=== PATIENT | female | born 1980 | race Caucasian/White ===

== ENCOUNTER 2018-09-23 13:19 | Outpatient (CLI) | payer OTHER, SELFPAY ==
--- NOTE | 2018-09-23 14:12 | DI.RAD_ITS ---
SYMPTOMS/DIAGNOSIS: SHORTNESS OF BREATH, R06.02 PA AND LATERAL CHEST: The heart is normal in size. The lungs are clear. The mediastinal structures and pleura appear intact. CONCLUSION: Normal chest. No evidence of acute cardiopulmonary disease.
[2018-09-23 14:41] LABS: HCT 34.5 % (36.0-46.0); Mean Corp. HGB Concentration 31.9 g/dL (32.0-36.0); Mean Corpuscular Hemoglobin 27.3 pg (27.0-33.0); Mean Corpuscular Volume 85.6 fL (80-95); Mean Platelet Volume 9.8 fL (8.0-11.0); Platelet Count 274 x1000/uL (130-400); RBC 4.03 m/cumm (4.00-5.20); RBC Distribution Width 14.6 % (11.7-14.6); White Blood Cell Count 4.26 k/cumm (4.4-10.8)
[2018-09-23 15:09] LABS: Anion Gap 7.9 mmol/L (3-11); BUN 17 mg/dL (7-18); CO2 27.1 mmol/L (21.0-32.0); CREATININE 1.05 mg/dL (0.55-1.02); Calcium 8.5 mg/dL (8.5-10.1); Chloride 104 mmol/L (98-107); Estimated GFR 58.34 (mL/min/1.73m2); Glucose 93 mg/dL (70-100); Potassium 4.3 mmol/L (3.5-5.1); Sodium 139 mmol/L (136-145)
== END 2018-09-23 13:39 ==
PROVIDERS: PCP Physician Assistant Medical; Visit Provider Specialist/Technologist Athletic Trainer
DX: R53.83 Other fatigue (principal); D64.9 Anemia, unspecified; R06.02 Shortness of breath
CPT/HCPCS: 36415; 80048; 85027; 71046

== ENCOUNTER 2018-11-25 18:42 | Emergency (ER) | payer OTHER, SELFPAY ==
[2018-11-25 18:47] VITALS: BP 138/95; PULSE 80; RESP 20; TEMP 36.6; O2SAT 98
--- NOTE | 2018-11-25 19:40 | W.ED.GENAD ---
Discharge Plan Disposition Patient Disposition: HOME Condition: Fair Discharge Details Chief Complaint: Nk/Back Pain Clinical Impression: Acute left-sided back pain with sciatica Primary Care Provider: Gumaro Alonzo ED Provider: Shakila Gilmore Home Meds and New Rx's Prescriptions: New cyclobenzaprine 10 mg tablet 10 mg PO TID PRN (Reason: muscle spasm) Qty: 10 RF: 0 Continued venlafaxine [Effexor XR] 150 mg Capsule,Extended Release 24hr 150 mg PO DAILY RF: 0 Discharge Instructions Instructions: Cyclobenzaprine (By mouth), Back Pain (ED) Additional Instructions: Encourage hydration. Encourage gentle stretching and ambulation. Tylenol and/or Ibuprofen as needed for discomfort. May continue with Salonpas or Lidoderm patches for discomfort. Flexeril as prescribed for muscle spasm, do not drive while taking this medication. Referral for physical therapy is attached, please call them tomorrow to schedule appointment. Please call primary care to schedule appointment next week for reevaluation. If you develop altered sensation, change in urinary or bowel habits, note weakness in your legs, have fevers/chills or other new/worsening symptoms please seek care urgently once again. Stand Alone Forms: Physical Therapy Referral Referrals: Gumaro Alonzo PA [Primary Care Provider] - Medical Decision Making Patient is a 38 year old female, accompanied by friend, with c/c of left sided lower back pain that radiates down the posterior left leg. States that pain began one month ago and has waxed and waned based on position. Denies trauma. No fevers/chills. No altered sensation, no change in urinary or bowel habits. States she has had these issues historically, prior to his current episode the last was 3-4 months ago. Reports she was diagnosed with sciatica. Has been seen by her primary care and diagnosed with sciatica. She reports that typically this resolves on its own. However, the pain is persisted she is presenting to the emergency department tonight. States that she can have spasms that are quite severe but at this point the pain is fairly minimal. On exam, patient is walking with a minimally antalgic gait. No saddle paresthesias, strength is equal bialterally in lower extremities. Reflexes equal. No midline tenderness. Pain over left SI joint. Positive straight leg raise on the right side. Paitent and I discused treatment options. At this point, there is no evidence of emergent issue, no emergent treatment is necessary. She initially had declined medicaitons here but after exam, patient states pain is increased and is requesting Toradol as this has worked well for her historically. will also apply Lidoderm patch. We discussed possible patholgy. We discussed, at length, the need for chronic treatment. She will be referred to PT. She is endorsing muscle spasms, states that this can cause the largest amount of pain. Will also prescribed Flexeril to be used PRN. ADvised not to drive while taking this medication. We discussed new/worsening symptoms and when to seek care urgently once again. Advised new/worsening symptoms and when to seek care urgently once again. All of her questions and concerns were addressed. HPI General Mode of arrival: ambulatory. Date/Time Provider Initiated Documentation: 11/25/18 19:38. Limitations to Documentation: no limitations. Information obtained by: patient and family (accompanied by liset). History of Present Illness 38 year old F presents to the emergency department with the chief complaint of left lower back pain, described as moderate, Quality is described as aching, and is localized to the back. Patient extremity (LLE). Patient started experiencing this month(s) and it has been intermittent. No relieving factors improve symptom(s), Movement worsens symptoms . Patient notes denies chest pain, cough, fever/chills, rash and weakness. Patient did receive the following treatments prior to arrival, NSAID Related Data Home Medications Medication Instructions Recorded Confirmed cyclobenzaprine 10 mg PO TID PRN #10 tab 11/25/18 venlafaxine [Effexor XR] 150 mg PO DAILY 11/25/18 11/25/18 Previous Rx's Medication Instructions Recorded cyclobenzaprine 10 mg PO TID PRN #10 tab 11/25/18 Allergies Allergy/AdvReac Type Severity Reaction Status Date / Time No Known Allergies Allergy Unverified 11/25/18 18:51 General Stated Complaint: Nk/Back Pain MONICA: 4 Review of Systems Constitutional Reports as per HPI, Denies chills, Denies fever(s), Denies frequent falls, Denies headache(s) and Denies weakness ENT Denies headache(s) Cardiovascular Reports as per HPI Respiratory Reports as per HPI and Denies cough Musculoskeletal Reports as per HPI, Reports abnormal gait (antalgic), Denies numbness and Denies tingling Integumentary/Breasts Reports as per HPI, Denies rash and Denies wounds Neurologic Denies abnormal movements, Reports abnormal gait (antalgic), Denies frequent falls, Denies headache(s), Denies focal weakness, Denies numbness, Reports radicular pain, Denies sensory deficit, Denies tingling, Denies paresthesias and Denies weakness [facility] Social History Smoking/Tobacco Use Status: Current every day Exam Const General: cooperative, healthy appearing, comfortable, no acute distress, well developed and well groomed Nutritional Appearance: average body habitus and well nourished Orientation: alert and awake Resp Effort & Inspection: normal respiratory effort, able to speak in complete sentences and no respiratory distress Auscultation: clear to auscultation bilaterally Cardio Rate: regular rate Rhythm: regular rhythm Heart Sounds: S1 normal and S2 normal Back/Spine/Pelvis Cervical Spine: normal cervical lordosis and cervical ROM normal Thoracic/Lumbar Spine: thoracic and lumbar spine normal to inspection, thoraco-lumbar ROM normal, No straight leg raise negative bilaterally (positive on right side), No pain with thoraco-lumbar ROM, No paraspinal tenderness, No thoraco-lumbar ROM limited and No thoracic spinal tenderness Sacroiliac joints: on the left tender to palpation Skin General skin exam: no rashes or lesions noted Lesions: no lesions Rashes: no rashes Trauma: no lacerations or abrasions Neuro General: alert and awake Cognition: normal cognition Speech: speech normal Gait: antalgic Motor: muscle tone normal throughout and strength 5/5 throughout Sensory Exam: no sensory deficits noted (no saddle paresthesias) DTR's: Rt Patellar: 2+, Lt Patellar: 2+, Rt Ankle: 2+ and Lt Ankle: 2+ Extrem General: normal to inspection, no pedal edema and no calf tenderness Right lower extremity: normal to inspection Left lower extremity: normal to inspection Psych Appearance: grossly normal and well kempt Mental Status: mental status grossly normal Speech and Movement: speech and movement normal Course Vital Signs Temperature 36.6 C 11/25/18 18:47 Pulse 80 11/25/18 18:47 Respiratory Rate 20 11/25/18 18:47 Blood Pressure 138/95 H 11/25/18 18:47 Pulse Oximetry 98 11/25/18 18:47 Temperature 36.6 C 11/25/18 18:47 Temperature Source Temporal Artery Scan 11/25/18 18:47 Pulse 80 11/25/18 18:47 Respiratory Rate 20 11/25/18 18:47 Respiratory Effort Non-Labored 11/25/18 18:47 Blood Pressure 138/95 H 11/25/18 18:47 Pulse Oximetry 98 11/25/18 18:47 Oxygen Delivery Method Room Air 11/25/18 18:47 Oxygen Flow Rate 0 11/25/18 18:47 Pain Level 7 11/25/18 18:52
--- NOTE | 2018-11-25 20:06 | ED.GENADUL_ITS ---
Discharge Plan Disposition Patient Disposition: HOME Condition: Fair Discharge Details Chief Complaint: Nk/Back Pain Clinical Impression: Acute left-sided back pain with sciatica Primary Care Provider: Gumaro Alonzo ED Provider: Shakila Gilmore Home Meds and New Rx's Prescriptions: New cyclobenzaprine 10 mg tablet 10 mg PO TID PRN (Reason: muscle spasm) Qty: 10 RF: 0 Continued venlafaxine [Effexor XR] 150 mg Capsule,Extended Release 24hr 150 mg PO DAILY RF: 0 Discharge Instructions Instructions: Cyclobenzaprine (By mouth), Back Pain (ED) Additional Instructions: Encourage hydration. Encourage gentle stretching and ambulation. Tylenol and/or Ibuprofen as needed for discomfort. May continue with Salonpas or Lidoderm patches for discomfort. Flexeril as prescribed for muscle spasm, do not drive while taking this medication. Referral for physical therapy is attached, please call them tomorrow to schedule appointment. Please call primary care to schedule appointment next week for reevaluation. If you develop altered sensation, change in urinary or bowel habits, note weakness in your legs, have fevers/chills or other new/worsening symptoms please seek care urgently once again. Stand Alone Forms: Physical Therapy Referral Referrals: Gumaro Alonzo PA [Primary Care Provider] - Medical Decision Making Patient is a 38 year old female, accompanied by friend, with c/c of left sided lower back pain that radiates down the posterior left leg. States that pain began one month ago and has waxed and waned based on position. Denies trauma. No fevers/chills. No altered sensation, no change in urinary or bowel habits. States she has had these issues historically, prior to his current episode the last was 3-4 months ago. Reports she was diagnosed with sciatica. Has been seen by her primary care and diagnosed with sciatica. She reports that typically this resolves on its own. However, the pain is persisted she is presenting to the emergency department tonight. States that she can have spasms that are quite severe but at this point the pain is fairly minimal. On exam, patient is walking with a minimally antalgic gait. No saddle paresthesias, strength is equal bialterally in lower extremities. Reflexes equal. No midline tenderness. Pain over left SI joint. Positive straight leg raise on the right side. Paitent and I discused treatment options. At this point, there is no evidence of emergent issue, no emergent treatment is necessary. She initially had declined medicaitons here but after exam, patient states pain is increased and is requesting Toradol as this has worked well for her historically. will also apply Lidoderm patch. We discussed possible patholgy. We discussed, at length, the need for chronic treatment. She will be referred to PT. She is endorsing muscle spasms, states that this can cause the largest amount of pain. Will also prescribed Flexeril to be used PRN. ADvised not to drive while taking this medication. We discussed new/worsening symptoms and when to seek care urgently once again. Advised new/worsening symptoms and when to seek care urgently once again. All of her questions and concerns were addressed. HPI General Mode of arrival: ambulatory . Date/Time Provider Initiated Documentation: 11/25/18 19:38 . Limitations to Documentation: no limitations . Information obtained by: patient and family (accompanied by liset) . History of Present Illness 38 year old F presents to the emergency department with the chief complaint of left lower back pain, described as moderate, Quality is described as aching, and is localized to the back. Patient extremity (LLE). Patient started experiencing this month(s) and it has been intermittent. No relieving factors improve symptom(s), Movement worsens symptoms . Patient notes denies chest pain, cough, fever/chills, rash and weakness. Patient did receive the following treatments prior to arrival, NSAID Related Data Home Medications Medication Instructions Recorded Confirmed cyclobenzaprine 10 mg PO TID PRN #10 tab 11/25/18 venlafaxine [Effexor XR] 150 mg PO DAILY 11/25/18 11/25/18 Previous Rx's Medication Instructions Recorded cyclobenzaprine 10 mg PO TID PRN #10 tab 11/25/18 Allergies Allergy/AdvReac Type Severity Reaction Status Date / Time No Known Allergies Allergy Unverified 11/25/18 18:51 General Stated Complaint: Nk/Back Pain MONICA: 4 Review of Systems Constitutional Reports as per HPI, Denies chills, Denies fever(s), Denies frequent falls, Denies headache(s) and Denies weakness ENT Denies headache(s) Cardiovascular Reports as per HPI Respiratory Reports as per HPI and Denies cough Musculoskeletal Reports as per HPI, Reports abnormal gait (antalgic), Denies numbness and Denies tingling Integumentary/Breasts Reports as per HPI, Denies rash and Denies wounds Neurologic Denies abnormal movements, Reports abnormal gait (antalgic), Denies frequent falls, Denies headache(s), Denies focal weakness, Denies numbness, Reports radicular pain, Denies sensory deficit, Denies tingling, Denies paresthesias and Denies weakness [facility] Social History Smoking/Tobacco Use Status: Current every day Exam Const General: cooperative, healthy appearing, comfortable, no acute distress, well developed and well groomed Nutritional Appearance: average body habitus and well nourished Orientation: alert and awake Resp Effort & Inspection: normal respiratory effort, able to speak in complete sentences and no respiratory distress Auscultation: clear to auscultation bilaterally Cardio Rate: regular rate Rhythm: regular rhythm Heart Sounds: S1 normal and S2 normal Back/Spine/Pelvis Cervical Spine: normal cervical lordosis and cervical ROM normal Thoracic/Lumbar Spine: thoracic and lumbar spine normal to inspection, thoraco- lumbar ROM normal, No straight leg raise negative bilaterally (positive on right side), No pain with thoraco-lumbar ROM, No paraspinal tenderness, No thoraco- lumbar ROM limited and No thoracic spinal tenderness Sacroiliac joints: on the left tender to palpation Skin General skin exam: no rashes or lesions noted Lesions: no lesions Rashes: no rashes Trauma: no lacerations or abrasions Neuro General: alert and awake Cognition: normal cognition Speech: speech normal Gait: antalgic Motor: muscle tone normal throughout and strength 5/5 throughout Sensory Exam: no sensory deficits noted (no saddle paresthesias) DTR's: Rt Patellar: 2+, Lt Patellar: 2+, Rt Ankle: 2+ and Lt Ankle: 2+ Extrem General: normal to inspection, no pedal edema and no calf tenderness Right lower extremity: normal to inspection Left lower extremity: normal to inspection Psych Appearance: grossly normal and well kempt Mental Status: mental status grossly normal Speech and Movement: speech and movement normal Course Vital Signs Temperature 36.6 C 11/25/18 18:47 Pulse 80 11/25/18 18:47 Respiratory Rate 20 11/25/18 18:47 Blood Pressure 138/95 H 11/25/18 18:47 Pulse Oximetry 98 11/25/18 18:47 Temperature 36.6 C 11/25/18 18:47 Temperature Source Temporal Artery Scan 11/25/18 18:47 Pulse 80 11/25/18 18:47 Respiratory Rate 20 11/25/18 18:47 Respiratory Effort Non-Labored 11/25/18 18:47 Blood Pressure 138/95 H 11/25/18 18:47 Pulse Oximetry 98 11/25/18 18:47 Oxygen Delivery Method Room Air 11/25/18 18:47 Oxygen Flow Rate 0 11/25/18 18:47 Pain Level 7 11/25/18 18:52
[2018-11-25] MEDS: Lidocaine 5% Patch 1 PATCH TP (20:39)
[2018-11-25] MEDS: Ketorolac 30 MG/ML VIAL IM (20:39)
[2018-11-25] MEDS: Cyclobenzaprine 10 MG TAB 20 MG PO (20:39)
[2018-11-25 21:58] VITALS: BP 138/95; PULSE 80; RESP 20; TEMP 36.6; O2SAT 98
== END 2018-11-25 20:40 | disposition home or self-care (01) ==
PROVIDERS: Emergency Provider Physician Assistant; PCP Physician Assistant Medical
DX: M54.42 Lumbago with sciatica, left side (principal)
CPT/HCPCS: 96372; 99284; 99283; J1885

== ENCOUNTER 2019-06-02 18:18 | Outpatient (REF) | payer SELFPAY ==
[2019-06-02 20:16] LABS: Abs Immature Grans 0.02 k/cumm (0.0-0.09); Absolute Basophil Count 0.03 k/cumm (0.0-0.2); Absolute Eosinophil Count 0.17 k/cumm (0.0-0.7); Absolute Lymphocyte Count 2.07 k/cumm (1.2-3.4); Absolute Monocyte Count 0.82 k/cumm (0.11-0.7); Absolute Neutrophil Count 5.73 k/cumm (1.2-6.7); Basophils % 0.3; Eosinophils % 1.9; HCT 34.9 % (36.0-46.0); HGB 11.1 g/dL (12.0-15.5); Immature Grans % 0.2; Lymphocytes % 23.4; Mean Corp. HGB Concentration 31.8 g/dL (32.0-36.0); Mean Corpuscular Hemoglobin 26.2 pg (27.0-33.0); Mean Corpuscular Volume 82.3 fL (80-95); Monocytes % 9.3; Neutrophils % 64.9; Platelet Count 317 x1000/uL (130-400); RBC 4.24 m/cumm (4.00-5.20); RBC Distribution Width 14.4 % (11.7-14.6); White Blood Cell Count 8.84 k/cumm (4.4-10.8)
[2019-06-02 20:30] LABS: Iron 32 ug/dL (50-175); Total Iron Binding Capacity 465 ug/dL (250-450); Transferrin Sat 7 % (15-50)
[2019-06-02 21:00] LABS: ALT 31 U/L (12-78); AST 19 U/L (15-37); Albumin 3.6 g/dL (3.4-5.0); Alkaline Phosphatase 69 U/L (46-116); Anion Gap 11.1 mmol/L (3-11); BUN 19 mg/dL (7-18); Bilirubin, Total 0.2 mg/dL (0.2-1.0); CO2 20.9 mmol/L (21.0-32.0); CREATININE 0.89 mg/dL (0.55-1.02); Calcium 8.6 mg/dL (8.5-10.1); Chloride 105 mmol/L (98-107); Ferritin 6 ng/mL (8-388); Glucose 84 mg/dL (70-100); Potassium 4.3 mmol/L (3.5-5.1); Sodium 137 mmol/L (136-145); TSH (W/Ref FT4) 2.73 uIU/mL (0.358-3.74); Total Protein 7.1 g/dL (6.4-8.2); Vitamin B12 446 pg/mL (193-986)
== END 2019-06-02 18:38 ==
LOC: NCHCN 18:18
PROVIDERS: PCP Physician Assistant Medical; Visit Provider Physician Assistant Medical
DX: R53.83 Other fatigue (principal); D64.9 Anemia, unspecified
CPT/HCPCS: 80053; 82607; 82728; 83540; 83550; 84443; 85025

== ENCOUNTER 2020-10-30 15:12 | Outpatient (REF) | payer BC, SELFPAY ==
[2020-11-01 17:29] LABS: COVID-19 RT-PCR Result NEGATIVE (Negative)
== END 2020-10-30 15:32 ==
LOC: LBN 15:12
PROVIDERS: PCP Physician Assistant Medical; Visit Provider Nurse Practitioner Family
DX: J06.9 Acute upper respiratory infection, unspecified (principal)
CPT/HCPCS: U0003

== ENCOUNTER 2020-10-31 22:51 | Emergency (ER) | payer BC, SELFPAY ==
--- NOTE | 2020-10-31 22:53 | ED.GENADUL_ITS ---
Discharge Plan Disposition Patient Disposition: HOME Condition: Stable Discharge Details Clinical Impression: Pneumonia Primary Care Provider: Gumaro Alonzo ED Provider: Ridge Wagner Home Meds and New Rx's Prescriptions: New doxycycline hyclate 100 mg capsule 100 mg PO BID Qty: 20 RF: 0 budesonide [Rhinocort Allergy] 32 mcg/actuation spray,non-aerosol 1 spray intranasal QAM AND QPM Qty: 8.43 RF: 0 Continued venlafaxine [Effexor XR] 150 mg Capsule,Extended Release 24hr 150 mg PO DAILY RF: 0 Discharge Instructions Instructions: Pneumonia (ED) Additional Instructions: Doxycycline and Rhinocort as directed. [id number] medications as directed for symptomatic control. Please watch for new or worsening symptoms and return to the ER for any concerns. Continue to quarantine while your Covid test is pending. I do recommend contacting your primary care provider's office by phone tomorrow to discuss your ongoing symptoms, work-up in the ER, and pending Covid test. Medical Decision Making 40-year-old female, current smoker, presents with 1 week history of dry cough, nasal congestion, runny nose, ear pain. [id number] medication has not been very helpful. Was seen at [facility] yesterday, tested for Covid, awaiting results. Clinically patient appears well, nontoxic. She is afebrile, O2 sats 100% on room air. No need to test for Covid as she already has a Covid test pending. No clear indication for breathing treatment. I would like to obtain a chest x- ray to rule out pneumonia. Chest x-ray read by virtual radiology as patchy bibasilar densities. Early pneumonia is possible. Subsegmental atelectasis may be present in the left lung base Discussed findings with patient. Will initiate antibiotic therapy, and provide a nasal steroid. Patient will continue to quarantine as her Covid test is pending. Medical Records Medical records reviewed: Yes I reviewed the patient's medical records. HPI General Mode of arrival: ambulatory . Date/Time Provider Initiated Documentation: 10/31/20 22:52 . Limitations to Documentation: no limitations . Information obtained by: patient . HPI Narrative: This is a 40-year-old female, current half pack a day smoker, denies significant past medical history. She presents to the ER today for approximately 1 week history of primarily dry cough, upper respiratory symptoms. She was seen at [facility] yesterday, tested for Covid, no source of bacterial infection found and therefore antibiotics not given. Has tried [id number] medications with minimal relief. She is awaiting Covid results. She denies recent travel. Reports that last week her son was treated for walking pneumonia. Patient reports nasal congestion, dry cough, ear pain. Denies headache, sore throat, chest pain, shortness of breath, abdominal pain, nausea, vomiting. Denies pain or swelling in her legs. She states that her temperature has ranged between 99 and 100, no true fever. Related Data Home Medications Medication Instructions Recorded Confirmed venlafaxine [Effexor XR] 150 mg PO DAILY 11/25/18 10/31/20 budesonide [Rhinocort Allergy] 1 spray INTRANASAL QAM AND QPM 10/31/20 #8.43 ml doxycycline hyclate 100 mg PO BID #20 cap 10/31/20 Previous Rx's Medication Instructions Recorded budesonide [Rhinocort Allergy] 1 spray INTRANASAL QAM AND QPM 10/31/20 #8.43 ml doxycycline hyclate 100 mg PO BID #20 cap 10/31/20 Allergies Allergy/AdvReac Type Severity Reaction Status Date / Time No Known Allergies Allergy Unverified 10/31/20 23:00 General MONICA: 4 Review of Systems Constitutional Constitutional: Denies fatigue, Denies fever(s) and Denies headache(s) Eyes Eyes: Denies eye discharge ENT Ears, Nose, Mouth, and Throat: Denies headache(s), Reports nasal congestion, Reports nasal discharge and Denies sore throat Cardiovascular Cardiovascular: Denies chest pain and Denies dyspnea Respiratory Respiratory: Reports cough and Denies dyspnea Gastrointestinal Gastrointestinal: Denies abdominal pain, Denies nausea and Denies vomiting Musculoskeletal Musculoskeletal: Denies back pain Integumentary/Breasts Skin/Breast: Denies rash Neurologic Neurologic: Denies headache(s) Endocrine Endocrine: Denies fatigue [facility] Social History Smoking/Tobacco Use Status: Current every day Tobacco Type: cigarettes Smoking risk assessment performed?: Yes Alcohol Intake: current Alcohol Intake frequency: a few times a month Drug use: Never Substance use type: does not use Do you feel safe at home: Yes Do you feel safe in your relationship?: Yes Exam Const General: cooperative, healthy appearing, comfortable and no acute distress Orientation: alert and awake [facility] Head: normal to inspection, normocephalic and atraumatic Ears: external ears normal, TM's normal bilaterally and EAC's normal General nose exam: external nose normal, septum normal, mucous membranes and turbinates abnormal boggy and nasal discharge clear Face and sinus: normal facial exam Mouth: oral mucosae normal and moist mucous membranes Throat: posterior oropharynx normal Eyes General: appearance normal, both eyes and all related structures Conjunctivae: conjunctivae normal Sclera: sclerae normal Neck Neck: normal visual inspection, full ROM, no lymphadenopathy, no meningeal signs, trachea midline, supple and nontender Resp Effort & Inspection: normal respiratory effort, able to speak in complete sentences and cough Quality of cough: dry Auscultation: clear to auscultation bilaterally Cardio Rate: regular rate Rhythm: regular rhythm Back/Spine/Pelvis Back: No back tenderness Skin General skin exam: no rashes or lesions noted Neuro General: patient alert, patient awake, moves all extremities and no focal motor deficits Cognition: normal cognition Speech: speech normal Gait: normal gait Motor: muscle tone normal throughout Sensory Exam: no sensory deficits noted Extrem General: normal to inspection, full ROM, no pedal edema and no calf tenderness Psych Appearance: grossly normal Mental Status: mental status grossly normal
[2020-10-31 22:56] VITALS: BP 143/124; PULSE 96; RESP 18; TEMP 36.7; O2SAT 100
--- NOTE | 2020-10-31 23:00 | DI.RAD_ITS ---
EXAM: XR PORTABLE CHEST AP CLINICAL HISTORY: cough/pui. TECHNIQUE: 2D digital imaging was performed. COMPARISON: Prior chest x-ray 09/23/2018 FINDINGS: Heart size is normal. Mediastinum not widened. Left lung is clear. Mild increased markings towards right lung base, more so than previous. No obvious pleural effusions. IMPRESSION: Subtle increased markings right lung base. Possible infiltrate. Recommend nonportable PA and latera l views when clinically possible. DATA REPOSITORY: RADIATION DOSE DELIVERED:
--- NOTE | 2020-10-31 23:27 | DI.VRAD_ITS ---
PROCEDURE INFORMATION: Exam: XR Chest, 1 View Exam date and time: 10/31/2020 23:19 Age: 40 years old Clinical indication: Cough and other: Congestion; Patient HX: Cough and congestion TECHNIQUE: Imaging protocol: XR of the chest Views: 1 view. COMPARISON: CR XR CHEST 2V PA LATERAL 09/23/2018 14:03 FINDINGS: Lungs: Patchy asymmetric density in the right lung base. Very faint linear densities may be present in the left lung base. No significant volume overload. Pleural space: No significant pleural effusion. No pneumothorax. Heart/Mediastinum: No cardiomegaly. Bones/joints: No acute fracture. IMPRESSION: Patchy basilar densities as described. Early pneumonia is possible. Consider follow-up. Subsegmental atelectasis may be present in the left lung base. Dictated and Authenticated by: Shannan Dunaway MD. Ordering:SATISH Sabillon MD
[2020-10-31] MEDS: Doxycycline Hyclate 100 MG CAP PO (23:43)
== END 2020-10-31 23:48 | disposition home or self-care (01) ==
PROVIDERS: Emergency Provider Physician Assistant; PCP Physician Assistant Medical
DX: J18.9 Pneumonia, unspecified organism (principal); F17.210 Nicotine dependence, cigarettes, uncomplicated
CPT/HCPCS: 99283; 71045

== ENCOUNTER 2021-02-02 15:16 | Outpatient (REF) | payer BC, SELFPAY ==
--- NOTE | 2021-02-02 13:14 | PAPFT_PTH ---
PATIENT: Chaparrita Baird LOC: [facility]#:[id number] AGE/SX: 40/F ROOM: RE02/02/[address]: Gumaro Alonzo : 1980 BED: DIS: 02/02/2021 SPEC #: [id number] RECD: 02/05/21 12:58 STATUS: NO REMisty #: [id number] SINAN: 02/02/21 13:[address]: Gumaro Alonzo DEPT: [facility] Cytology RECD BY: Kate Monge Tissues: 1 - CX/ENDOCX FOR PAP SMEARS Procedures: PAP THIN PREP/UVM Screening HPV DNA PROBE Comments: [id number]
[2021-02-02 19:05] LABS: Hemoglobin A1C 5.5 % (<5.7)
[2021-02-02 19:16] LABS: Anion Gap 10.7 mmol/L (3-11); BUN 14 mg/dL (7-18); CO2 23.3 mmol/L (21.0-32.0); CREATININE 0.9 mg/dL (0.55-1.02); Calcium 8.5 mg/dL (8.5-10.1); Calculated LDL 57 mg/dL (<100); Chloride 106 mmol/L (98-107); Cholesterol 162 mg/dL (<200); Glucose 89 mg/dL (74-106); HDL Cholesterol 77 mg/dL (40-60); Potassium 4.4 mmol/L (3.5-5.1); Sodium 140 mmol/L (136-145); Triglyceride 140 mg/dL (<150)
== END 2021-02-02 15:17 | disposition home or self-care (01) ==
LOC: NCHCN 15:16
PROVIDERS: PCP Physician Assistant Medical; Visit Provider Physician Assistant Medical
DX: Z00.00 Encounter for general adult medical examination without abnormal findings (principal); D64.9 Anemia, unspecified; Z13.1 Encounter for screening for diabetes mellitus; Z13.220 Encounter for screening for lipoid disorders; Z12.4 Encounter for screening for malignant neoplasm of cervix; Z11.51 Encounter for screening for human papillomavirus (HPV)
CPT/HCPCS: 80048; 80061; 88142; 83036; 87624

== ENCOUNTER 2023-07-15 12:30 | Outpatient (REF) | payer BC, SELFPAY ==
[2023-07-15 16:06] LABS: Abs Immature Grans 0.02 10^3/uL (0.0-0.06); Absolute Basophil Count 0.05 10^3/uL (0.0-0.2); Absolute Eosinophil Count 0.07 10^3/uL (0.0-0.7); Absolute Lymphocyte Count 1.57 10^3/uL (1.2-3.4); Absolute Monocyte Count 0.54 10^3/uL (0.1-0.8); Absolute Neutrophil Count 4.74 10^3/uL (1.2-6.7); Basophils % 0.7; HCT 33.3 % (36.0-46.0); HGB 9.9 g/dL (11.2-15.7); Immature Grans % 0.3; Lymphocytes % 22.5; MCH 21.6 pg (27.0-33.0); MCHC 29.7 % (32.0-36.0); MCV 73 fL (80-95); MPV 9.6 fL (8.0-11.0); Monocytes % 7.7; Neutrophils % 67.8; Platelet Count 396 10^3/uL (130-400); RBC 4.58 10^6/uL (3.93-5.22); RDW 17.5 % (11.7-14.6); RDW-SD 45.1 fL; WBC 6.99 10^3/uL (4.4-10.8)
[2023-07-15 16:48] LABS: Anion Gap 10.3 mmol/L (3-11); BUN 15 mg/dL (7-18); CO2 22.7 mmol/L (21.0-32.0); CREATININE 0.9 mg/dL (0.55-1.02); Calcium 8.8 mg/dL (8.5-10.1); Chloride 104 mmol/L (98-107); Estimated GFR 80.84 (mL/min/1.73m2); Ferritin 5 ng/mL (8-252); Glucose 99 mg/dL (74-106); Potassium 4.4 mmol/L (3.5-5.1); Sodium 137 mmol/L (136-145)
[2023-07-15 16:53] LABS: Anisocytosis 1+; Diff Comment RBC Morph Reviewed; Microcytosis 1+
[2023-07-15 16:54] LABS: Polychromasia Present
== END 2023-07-15 12:31 | disposition home or self-care (01) ==
LOC: NCHCN 12:30
PROVIDERS: PCP Physician Assistant Medical; Visit Provider Physician Assistant Medical
DX: D64.9 Anemia, unspecified (principal); Z90.5 Acquired absence of kidney
CPT/HCPCS: 80048; 82728; 85025

== ENCOUNTER → 2023-07-31 01:32 | Outpatient (CLI) | payer BC, SELFPAY ==
--- NOTE | 2023-07-31 | DI.MAMMO_ITS ---
Exam(s) MAMMO SCREENING EXAM: MAMMO SCREENING CLINICAL HISTORY: SCREENING, Z12.31,BASELINE TECHNIQUE: Mammograms were interpreted according to the usual protocol including computer analysis w ith CAD system, tomosynthesis and C-view imaging. COMPARISON: No exams were available for comparison FINDINGS: The breasts are composed of scattered fibroglandular densities, Breast Density category B. No suspicious masses or suspicious microcalcifications are seen. No skin thickening or abnormal axillary lymph nodes are seen. IMPRESSION: BI-RADS Category 1, Negative mammogram Yearly screening mammography is recommended. Breast Density - Category B, scattered fibroglandular densities. A negative radiographic report should not delay biopsy if a dominant or clinically suspicious mass is present. Up to ten percent of cancers are not identified on mammography. A negative report may reinforce clinical impression. Adenosis and dense breasts may obscure an underlying neoplasm. False positive reports average 6 to 10%. Patient will receive a letter notifying them of these results.
== END ==
PROVIDERS: PCP Physician Assistant Medical; Visit Provider Physician Assistant Medical
DX: Z12.31 Encounter for screening mammogram for malignant neoplasm of breast (principal)
CPT/HCPCS: 77063; 77067

== ENCOUNTER 2023-08-14 11:00 | Outpatient (RCR) | payer BC, SELFPAY ==
[2023-07-28] MEDS: Normal Saline Flush 10 ML SYR IVP (11:09)
[2023-07-28] MEDS: IRON SUCROSE COMPLEX 300 MG in Normal Saline 250 ML 176.667 MG IVPB (11:22)
[2023-08-04] MEDS: IRON SUCROSE COMPLEX 300 MG in Normal Saline 250 ML 176.667 MG IVPB (11:18)
[2023-08-04] MEDS: Normal Saline Flush 10 ML SYR IVP (11:18)
[2023-08-14] MEDS: Normal Saline Flush 10 ML SYR IVP (11:19)
[2023-08-14] MEDS: IRON SUCROSE COMPLEX 300 MG in Normal Saline 250 ML 176.667 MG IVPB (11:19)
== END 2023-08-16 23:59 | disposition home or self-care (01) ==
LOC: INF 11:00
PROVIDERS: PCP Physician Assistant Medical; Visit Provider Family Medicine
DX: D64.9 Anemia, unspecified (principal)
CPT/HCPCS: 96365; 96366; J1756

== ENCOUNTER 2024-09-06 21:50 | Outpatient (REF) | payer BC, SELFPAY ==
[2024-09-06 19:58] LABS: HCT 37.4 % (36.0-46.0); HGB 12.2 g/dL (11.2-15.7); MCH 29.3 pg (27.0-33.0); MCHC 32.6 % (32.0-36.0); MCV 90 fL (80-95); MPV 9.9 fL (8.0-11.0); Platelet Count 308 10^3/uL (130-400); RBC 4.16 10^6/uL (3.93-5.22); RDW 13.6 % (11.7-14.6); WBC 8.13 10^3/uL (4.4-10.8)
[2024-09-06 20:48] LABS: Anion Gap 10.8 mmol/L (3-11); BUN 22 mg/dL (7-18); CO2 23.2 mmol/L (21.0-32.0); Calcium 8.8 mg/dL (8.5-10.1); Calculated LDL 49 mg/dL (<100); Chloride 107 mmol/L (98-107); Cholesterol 170 mg/dL (<200); Ferritin 12 ng/mL (8-252); Glucose 106 mg/dL (74-106); HDL Cholesterol 68 mg/dL (40-60); Potassium 4.3 mmol/L (3.5-5.1); Sodium 141 mmol/L (136-145); TSH (W/Ref FT4) 1.66 uIU/mL (0.36-3.74); Triglyceride 265 mg/dL (<150)
[2024-09-06 21:36] LABS: Hemoglobin A1C 5.6 % (<5.7)
== END 2024-09-06 21:51 | disposition home or self-care (01) ==
LOC: NCHCN 21:50
PROVIDERS: PCP Physician Assistant Medical; Visit Provider Physician Assistant Medical
DX: D64.9 Anemia, unspecified (principal); Z90.5 Acquired absence of kidney; Z13.6 Encounter for screening for cardiovascular disorders; Z13.1 Encounter for screening for diabetes mellitus; E66.9 Obesity, unspecified
CPT/HCPCS: 80048; 80061; 85027; 82728; 83036; 84443

== ENCOUNTER 2025-11-16 16:42 | Outpatient (REF) | payer BC, SELFPAY ==
[2025-11-16 20:23] LABS: Abs Immature Grans 0.03 10^3/uL (0.0-0.06); HCT 39.7 % (36.0-46.0); HGB 13.5 g/dL (11.2-15.7); Immature Grans % 0.3 %; MCH 30.5 pg (27.0-33.0); MCHC 34.0 % (32.0-36.0); MCV 90 fL (80-95); MPV 9.8 fL (8.0-11.0); Platelet Count 354 10^3/uL (130-400); RBC 4.43 10^6/uL (3.93-5.22); RDW 12.7 % (11.7-14.6); RDW-SD 41.7 fL; WBC 10.29 10^3/uL (4.4-10.8)
[2025-11-16 20:36] LABS: ALT 44 U/L (10-49); AST 34 U/L (<34); Albumin 4.3 g/dL (3.2-5.0); Alkaline Phosphatase 70 U/L (46-116); Anion Gap 9.4 mmol/L (3-11); BUN 22 mg/dL (9-23); Bilirubin, Total 0.3 mg/dL (0.2-1.2); CO2 24.6 mmol/L (20.0-31.0); Calcium 9.1 mg/dL (8.3-10.6); Chloride 108 mmol/L (98-107); Glucose 77 mg/dL (74-106); Potassium 3.9 mmol/L (3.5-5.1); Sodium 142 mmol/L (136-145); Total Protein 7.1 g/dL (5.7-8.2)
[2025-11-16 20:38] LABS: Ferritin 20 ng/mL (7-271)
[2025-11-16 20:54] LABS: Iron 65 ug/dL (50-170)
== END 2025-11-16 16:43 | disposition home or self-care (01) ==
LOC: NCHCN 16:42
PROVIDERS: PCP Physician Assistant Medical; Visit Provider Physician Assistant Medical
DX: D64.9 Anemia, unspecified (principal); I10 Essential (primary) hypertension
CPT/HCPCS: 80053; 82728; 83540; 85025